=== PATIENT | female | born 1995 | race African-American/Black ===

== ENCOUNTER 2018-12-27 08:53 | Inpatient (IN) | payer MEDICAID ==
[~2018-12-27] VITALS: Ht 177.8 cm; Wt 93.0 kg
[2018-12-27] MEDS ORDERED: DEXT 5%/LR + PITOCIN 20UNITS/L 1,000 ML IV STA (09:07)
[2018-12-27] MEDS ORDERED: SODIUM CHLORIDE 0.9% 1,000 ML IV ONE ×3 (09:15→13:30)
[2018-12-27 09:26] LABS: BASOPHILS % 0.2 % (0.0-2.0); EOSINOPHILS % 0.6 % (0.0-5.0); HEMOGLOBIN. 10.9 g/dL (12.0-16.0); LYMPHOCYTES % 10.8 % (20.0-50.0); MEAN CORPUSCULAR HEMOGLOBIN 31.8 pg (28.0-32.0); MEAN CORPUSCULAR VOLUME 93.1 fL (81.0-99.0); MEAN PLATELET VOLUME 7.4 fl (7.4-10.4); MONOCYTES % 8.7 % (2.0-8.0); NEUTROPHILS % 79.7 % (40.0-76.0); PLATELET 292 x1000/uL (130-400); RED BLOOD CELL COUNT 3.44 mill/uL (4.2-5.4); RED CELL DISTRIBUTION WIDTH 13.2 % (11.6-14.6)
[2018-12-27 09:33] LABS: CHLORIDE 105 mEq/L (98-107)
[2018-12-27 11:50] LABS: BASOPHILS % 0.1 % (0.0-2.0); EOSINOPHILS % 0.3 % (0.0-5.0); HEMATOCRIT. 25.5 % (36.0-48.0); HEMOGLOBIN. 8.8 g/dL (12.0-16.0); LYMPHOCYTES % 9.7 % (20.0-50.0); MEAN CORPUSCULAR HEMOGLOBIN 32.1 pg (28.0-32.0); MEAN CORPUSCULAR VOLUME 93.2 fL (81.0-99.0); MEAN PLATELET VOLUME 7.1 fl (7.4-10.4); MONOCYTES % 10.1 % (2.0-8.0); NEUTROPHILS % 79.8 % (40.0-76.0); PLATELET 212 x1000/uL (130-400); RED BLOOD CELL COUNT 2.73 mill/uL (4.2-5.4); RED CELL DISTRIBUTION WIDTH 13.4 % (11.6-14.6)
[2018-12-27 16:00] VITALS: BP 112/54
[2018-12-27 16:20] VITALS: BP 112/54
[2018-12-27] MEDS ORDERED: PREN1.4T2 PO (16:40)
[2018-12-27] MEDS ORDERED: ONDANSETRON HCL 4MG/2ML INJ ONE (21:50)
[2018-12-27] MEDS ORDERED: GLYCOPYRROLATE 0.2 MG/ML 2ML VIAL ONE (21:50)
[2018-12-27] MEDS ORDERED: PROPOFOL 200MG/20ML VIAL IV ONE (21:50)
[2018-12-27] MEDS ORDERED: FENTANYL CITRATE/PF 50MCG/ML 2ML VIAL ONE (21:50)
[2018-12-27] MEDS ORDERED: MEPERIDINE HCL/PF 25MG/ML CPJ IV PRN (22:45)
[2018-12-27] MEDS ORDERED: KETOROLAC 30MG/ML VIAL IV NR (22:45)
[2018-12-27] MEDS ORDERED: ONDANSETRON HCL 4MG/2ML INJ IV PRN (22:45)
[2018-12-27 23:28] VITALS: BP 113/60
== END 2018-12-28 00:29 | disposition home or self-care (01) | DRG 544 ==
LOC: ER 10:07 → 7WST 11:25 → ENRESERV 13:57 → CANRESERV 13:57 → ENRESERV 15:35
PROVIDERS: ADMIT Obstetrics & Gynecology; ATTEND Obstetrics & Gynecology
PROC: 10D17ZZ Extraction of Products of Conception, Retained, Via Natural or Artificial Opening (ICD-10-PCS; principal; 2018-12-27)
DX: O03.4 Incomplete spontaneous abortion without complication (principal)
CPT/HCPCS: 36415; 86850; 86900; 86920; 88305; 88307; 99285; J1885; J2405; J2590; J2704; J3010; J3490; J7030

== ENCOUNTER 2022-05-31 16:01 | Emergency (ER) | payer MEDICAID ==
[~2022-05-31] VITALS: Ht 177.8 cm; Wt 77.0 kg
[~2022-05-31 16:01] MED LIST: PREN1.4T2 PO
[2022-05-31 16:10] VITALS: BP 127/77
== END 2022-05-31 23:18 | disposition home or self-care (01) ==
LOC: ER 16:01
DX: T16.2XXA Foreign body in left ear, initial encounter (principal); X58.XXXA Exposure to other specified factors, initial encounter; Y93.89 Activity, other specified; Y92.89 Other specified places as the place of occurrence of the external cause; Y99.8 Other external cause status
CPT/HCPCS: 69200; 99284